=== PATIENT | female | born 1965 | race Caucasian/White ===

== ENCOUNTER 2025-02-27 19:22 | Emergency (ER) | payer MEDICAID, OTHER ==
[~2025-02-27] VITALS: Ht 160 cm; Wt 74.5 kg
[2025-02-27 19:26] VITALS: O2SAT 96
[2025-02-27] MEDS: MORPHINE SULFATE 4 MG/ML INJ (FOR IV/IM USE) IV STA (19:55)
[2025-02-27] MEDS: ONDANSETRON HCL 4MG/2ML INJ IV STA (19:55)
[2025-02-27 20:45] LABS: BASOPHILS % 0.6 % (0.0-2.0); EOSINOPHILS % 3.1 % (0.0-5.0); HEMATOCRIT. 39.5 % (36.0-48.0); HEMOGLOBIN. 13.1 g/dL (12.0-16.0); LYMPHOCYTES % 26.8 % (20.0-50.0); MEAN PLATELET VOLUME 8.7 fl (7.4-10.4); MONOCYTES % 13.1 % (2.0-8.0); NEUTROPHILS % 56.4 % (40.0-76.0); PLATELET 195 x1000/uL (130-400); RED BLOOD CELL COUNT 4.69 mill/uL (4.2-5.4); RED CELL DISTRIBUTION WIDTH 13.7 % (11.6-14.6)
[2025-02-27] MEDS: SODIUM CHLORIDE 0.9% 1,000 ML IV ONE (20:57)
[2025-02-27 21:02] LABS: CREATININE 1.1 mg/dL (0.6-1.0)
[2025-02-27 21:03] LABS: INR 1.0; UREA NITROGEN BLOOD 16 mg/dL (9-23)
[2025-02-27 21:04] LABS: TROPONIN I HIGH SENSITIVITY 11 ng/L (3.0-34)
[2025-02-27 21:05] LABS: ASPARTATE AMINOTRANSFERASE 25 IU/L (<34); BILIRUBIN DIRECT 0.1 mg/dL (<=3.0); BILIRUBIN TOTAL 0.4 mg/dL (0.1-1.0); PROTEIN TOTAL 7.5 g/dL (6.0-8.3)
[2025-02-27 21:21] LABS: CLARITY URINE CLEAR (CLEAR); COLOR URINE YELLOW (YELLOW); GLUCOSE URINE NEGATIVE (NEGATIVE); KETONES URINE NEGATIVE (NEGATIVE); NITRITE URINE NEGATIVE (NEGATIVE); OCCULT BLOOD URINE NEGATIVE (NEGATIVE); PH URINE 7.5 (4.5-8.0); PROTEIN URINE NEGATIVE (NEGATIVE); SPECIFIC GRAVITY URINE 1.005 (1.005-1.030); UROBILINOGEN URINE 0.2 E.U./dL (0.2-1.0)
[2025-02-27 21:22] LABS: LEUKOCYTE ESTERASE URINE NEGATIVE (NEGATIVE)
[2025-02-27] MEDS: POTASSIUM CHLORIDE 20MEQ/PACKET PO ONE (21:38)
[2025-02-27] MEDS: ACETAMINOPHEN 325MG TABLET PO ONE (21:38)
[2025-02-27] MEDS ORDERED: IBUP-2028 MT (22:07)
[2025-02-27] MEDS ORDERED: HYDR-4001 MT (22:07)
[2025-02-27] MEDS ORDERED: LIDO-53 TP (22:07)
[2025-02-27] MEDS: KETOROLAC 30MG/ML VIAL IV ONE (22:13)
[2025-02-27 23:04] VITALS: BP 171/106; PULSE 79; RESP 20; TEMP 36.7; O2SAT 98
== END 2025-02-27 23:11 | disposition home or self-care (01) ==
LOC: ER 19:22 → EDBD 19:22 → ER 23:11
DX: M54.16 Radiculopathy, lumbar region (principal); N29 Other disorders of kidney and ureter in diseases classified elsewhere; M19.90 Unspecified osteoarthritis, unspecified site; R06.02 Shortness of breath; Z79.899 Other long term (current) drug therapy
CPT/HCPCS: 80076; 80048; 81003; 83880; 83605; 83690; 85025; 85610; 87040; 84484; 36415; 84145; 74176; 93005; 96374; 99285; J1885; J7030; Z7610 ×2; A4606